=== PATIENT | female | born 1995 | race African-American/Black ===

== ENCOUNTER 2023-09-05 16:42 | Emergency (ER) | payer SELFPAY ==
[~2023-09-05] VITALS: Ht 167.6 cm; Wt 69.4 kg
[2023-09-05 16:53] VITALS: BP 123/66; TEMP 98.6
[2023-09-05] MEDS ORDERED: IBUP-1953 PO (17:06)
[2023-09-05] MEDS ORDERED: AMOX-430 PO (17:06)
[2023-09-05] MEDS ORDERED: [UNRECOGNIZED DRUG - CODE] PO (17:06)
[2023-09-05 17:46] VITALS: O2SAT 97
== END 2023-09-05 17:00 | disposition home or self-care (01) ==
LOC: ER 16:44
DX: J32.9 Chronic sinusitis, unspecified (principal); Z60.2 Problems related to living alone